=== PATIENT | female | born 2000 | race Caucasian/White ===

== ENCOUNTER 2025-05-12 19:31 | Emergency (ER) | payer OTHER ==
[~2025-05-12] VITALS: Ht 167.6 cm; Wt 113.2 kg
[2025-05-12] MEDS ORDERED: METF500T13 PO (19:40)
[2025-05-12 21:32] LABS: BASO # 0.1 10^3/uL (0.0-0.2); BASO % 0.3 % (0.0-1.0); EOS # 0.1 10^3/uL (0.0-0.5); EOS % 0.5 % (0.0-3.0); LYMPH # 3.6 10^3/uL (1.5-5.0); LYMPH % 20.8 % (24.0-44.0); MONO # 1.0 10^3/uL (0.0-0.8); MONO % 5.9 % (2.0-8.0); NEUTROPHILS # 12.3 10^3/uL (1.5-8.5); NEUTROPHILS % 72.1 % (36.0-66.0); PLATELET COUNT, AUTOMATED 432 10^3/uL (150-450)
[2025-05-12 21:55] LABS: C REACTIVE PROTEIN QUANTITATIV 2.07 MG/DL (<1.0); CALCIUM LEVEL 10.0 MG/DL (8.5-10.1); CARBON DIOXIDE LEVEL 28 MMOL/L (20-31); CHLORIDE LEVEL 100 MMOL/L (98-107); CREATININE FOR GFR 0.84 MG/DL (0.55-1.30); GLOMERULAR FILTRATION RATE > 90.0 (>60); POTASSIUM SERUM 4.7 MMOL/L (3.5-5.1); SODIUM LEVEL 138 MMOL/L (136-145)
[2025-05-12 21:58] LABS: HCG, SERUM QUALITATIVE NEGATIVE (NEGATIVE)
[2025-05-12] MEDS: ceFAZolin SODIUM 2 GM in DEXTROSE 5% (D5W) ADV/MINI-BAG 50 ML IV ONE (22:11)
[2025-05-12] MEDS ORDERED: DOXY-441 PO (22:27)
[2025-05-12 22:43] VITALS: BP 129/77; TEMP 98; O2SAT 96
== END 2025-05-12 22:53 | disposition home or self-care (01) ==
LOC: M ED 19:31
DX: L03.211 Cellulitis of face (principal); E28.2 Polycystic ovarian syndrome; Z79.4 Long term (current) use of insulin; Z79.899 Other long term (current) drug therapy
CPT/HCPCS: 80048; 84703; 85025; 86140; 87040; 96365; 99284; J0688